=== PATIENT | female | born 1950 | race Caucasian/White ===

== ENCOUNTER 2016-10-28 10:24 | Emergency (ER) | payer OTHER ==
[2016-10-28 10:33] VITALS: O2SAT 94
--- NOTE | 2016-10-28 10:49 | EDPHY ---
HPI/HX/ROS/PE/MDM Narrative: CHIEF COMPLAINT: Needs port flushed HPI: The patient is a 66-year-old female with history of breast and ovarian cancer, currently in remission, who comes to the ED today to have her port flushed. The patient gets her port flushed every 6 weeks with 20 mL normal saline followed by 50 units Heparin flush- per her physician's orders. She is visiting from [place] and will be here for the next three months. She called multiple oncology offices, but was unable to be seen. She was told by her PCP to come to the ED to have the port flushed. Patient has no complaints at this time. REVIEW OF SYSTEMS: Gen: No fever, no chills. PMH: Ovarian cancer. Breast cancer. SOCIAL HISTORY: . Retired. Visiting from [place]. PHYSICAL EXAM: General: Patient is alert, in no acute distress. Neuro: Oriented x3. Normal motor function. Normal sensory function. ED Course: Port was flushed with 20mL normal saline followed by Heparin flush. MDM: I called and spoke with Dr. Young from Oncology to try and arrange for further treatment since patient will be in town all summer. He confirms they are unable to treat patient unless she is an established patient, so she is left with option of getting port flushed here in the ED. General Time Seen by Provider: 10/28/16 10:43 Initial Vital Signs: Initial Vital Signs Temperature (C) 36.5 C 10/28/16 10:31 Heart Rate 80 10/28/16 10:31 Respiratory Rate 16 10/28/16 10:31 Blood Pressure 135/100 H 10/28/16 10:31 O2 Sat (%) 94 10/28/16 10:31 O2 Delivery Mode Room Air Allergies/Adverse Reactions: No Known Allergies Allergy (Unverified 10/28/16 10:30) Home Medications: Medication Instructions Recorded Anastrozole 10/28/16 Crestor 10/28/16 Escitalopram Oxalate 10/28/16 Departure - Departure Disposition: Home, Routine, Self-Care Clinical Impression: Portacath in place, port-a-cath flush Condition: Good Instructions: Additional Information Additional Instructions: Followup with your Oncologist when you return home to [place]. You have been referred to a local Oncologist, please have your oncologist speak with this Oncologist if you intend to be in [place] for a long length of time. Referrals: Christi Young MD [Medical Doctor] - As per Instructions (Oncology) Report Scribed for: Elier Azar Report Scribed by: Brenda Gates Date of Report: 10/28/16 Time of Report: 10:49 Physician Review and Approval Statement: Portions of this note were transcribed by a medical liaison. I personally performed a history, physical exam, medical decision making, and confirmed accuracy of information the transcribed note.
[2016-10-28 11:30] VITALS: BP 140/84; PULSE 70; RESP 14; TEMP 98.4
== END 2016-10-28 11:35 | disposition home or self-care (01) ==
DX: Z45.2 Encounter for adjustment and management of vascular access device (principal); Z85.3 Personal history of malignant neoplasm of breast; Z85.43 Personal history of malignant neoplasm of ovary
CPT/HCPCS: J1642